=== PATIENT | male | born 1990 | race African-American/Black ===

== ENCOUNTER 2021-04-24 07:32 | Observation (INO) | payer MEDICAID, SELFPAY ==
[2021-04-24] VITALS (40 sets, daily range): BP systolic 138–188; BP diastolic 76–134; PULSE 57–97; RESP 15–27; TEMP 35.9–36.4; O2SAT 97–100; BMI 36.6
--- NOTE | ~2021-04-24 | CT_ITS ---
EXAMINATION: CTA chest PE protocol DATE: 04/24/2021 16:01 INDICATION: Chest pain and shortness of breath TECHNIQUE: Computed tomography (CT) pulmonary angiogram of the chest was performed with 100 mL Omnipa que-350 intravenous contrast. Additional 3D reconstructions utilizing coronal maximum intensity proje ction (MIP) were performed. Automated exposure control and iterative reconstruction technique were em ployed. The dose-length product was 1088.89 mGy-cm. COMPARISON: None FINDINGS: Excellent contrast opacification of the pulmonary arteries. There is mild streak artifact from dense contrast in the superior vena cava and right atrium. Mild scattered respiratory motion artifact. No p ulmonary embolism. No pneumonia, pulmonary edema, pleural effusion or pneumothorax. Heart size is nor mal. No pericardial effusion. Thoracic aorta is normal in caliber with no dissection. No pathological ly enlarged thoracic lymphadenopathy. Visualized upper abdomen and bones are unremarkable. IMPRESSION: 1. No pulmonary embolism or other acute cardiopulmonary disease. Reviewed, dictated and finalized at location A.
--- NOTE | ~2021-04-24 | XR_ITS ---
EXAMINATION: XR chest 2V DATE: 04/24/2021 07:55 INDICATION: Mid chest pain. TECHNIQUE: Frontal and lateral views of the chest were obtained. COMPARISON: None. FINDINGS: The chest demonstrates clear lungs without pneumonia, pleural effusion, or pneumothorax. Th e heart size is normal. IMPRESSION: 1. No acute cardiopulmonary disease. Reviewed, dictated and finalized at location A.
--- NOTE | 2021-04-24 07:40 | ECG_ITS ---
Measurements Intervals [place] Rate: 71 P: 14 IN: 148 QRS: -9 QRSD: 85 T: -69 QT: 360 QTc: 391 Interpretive Statements SINUS RHYTHM DELAYED PRECORDIAL R/S TRANSITION NONSPECIFIC T-WAVE ABNORMALITY- INF/LAT LEADS BASELINE ARTIFACT- I, II, III, AVR, AVL, AVF, V2-V6 BORDERLINE ECG Electronically Signed On 04-24-2021 8:06:07 CDT by Eyal Medley D.O.
[2021-04-24 07:53] LABS: Basophils Absolute Auto 0.1 K/mm3 (0.0-0.1); Basophils Percent Auto 0.9 % (0.2-1.2); Eosinophils Absolute Auto 0.6 K/mm3 (0-0.3); Eosinophils Percent Auto 7.7 % (0-4.4); Hematocrit 47.3 % (42.0-52.0); Hemoglobin 15.5 g/dL (14.0-18.0); Immature Granulocyte Absolute 0.02 K/mm3 (0.00-0.031); Immature Granulocyte Percent A 0.3 % (0-0.5); Lymphocytes Absolute Auto 2.81 K/mm3 (0.9-3.2); Lymphocytes Percent Auto 36.5 % (18.3-44.2); Mean Corpuscular HGB Conc 32.8 g/dl (32-36); Mean Corpuscular Hemoglobin 30.2 pg (26-34); Mean Corpuscular Volume 92.2 fl (80-100); Mean Platelet Volume 9.3 fl (7.4-10.4); Monocytes Absolute Auto 0.6 K/mm3 (0.1-0.6); Monocytes Percent Auto 7.5 % (2.6-8.5); Neutrophils Absolute Auto 3.6 K/mm3 (1.3-6.7); Neutrophils Percent Auto 47.1 % (45.5-73.1); Platelet Count Result 364 k/mm3 (150-375); Red Blood Count 5.13 M/mm3 (4.6-6.20); Red Cell Distribution Width 13.1 % (11.5-14.5); White Blood Count 7.7 K/mm3 (4.5-10.0)
[2021-04-24 08:08] LABS: INR 0.9; Prothrombin Time 11.8 Seconds (11.1-14.7)
[2021-04-24 08:09] LABS: Partial Thromboplastin Time 30.2 SECONDS (22.3-36.8)
--- NOTE | 2021-04-24 08:14 | ED.CHESTPAIN ---
HPI - Chest Pain General Chief Complaint: Chest Pain Stated Complaint: chest pain, SOB, left sided numbness Time Seen by Provider: 04/24/21 07:55 Source: patient History of Present Illness HPI narrative: Patient presents with chest pain. Patient reports his symptoms started around 615 and is getting in the car to go to work. His symptoms are described as a chest tightness were constant for approximately half hour and then resolved. When he got to work his boss was concerned these may be symptoms or heart attack referred in the ER for evaluation. Patient reports he feels well now. When he is having symptoms they were associated with some shortness of breath and again chest tightness. Reported brief wave of nausea at the end of his symptoms denies any active nausea or vomiting. Denies recent fevers, cough, congestion. Reports his father in his 40s from heart related issue. He denies recent hospitalizations, traumas, prior blood clots, recent surgeries. Related Data Home Medications Medication Instructions Recorded Confirmed No Home Medications 04/24/21 04/24/21 Allergies Allergy/AdvReac Type Severity Reaction Status Date / Time No Known Allergies Allergy Verified 04/24/21 07:39 Review of Systems Review of Systems: CONSTITUTIONAL: Denies fever, chills, or sweats. EYES: Denies visual changes, redness, or discharge. ENT: Denies rhinorrhea, congestion, sore throat, or otalgia. CARDIOVASCULAR: Denies palpitations, or edema. RESPIRATORY: Denies cough. GASTROINTESTINAL: Denies abdominal pain, nausea, vomiting, or diarrhea. GENITOURINARY: Denies dysuria or hematuria. SKIN: Denies rash or itching. MUSCULOSKELETAL: Denies back pain, joint pain, or myalgia. NEUROLOGIC: Denies headache, numbness, dizziness, or weakness. PSYCHIATRIC: Denies anxiety or depression. All systems reviewed & are unremarkable except as noted in HPI and below PMFSH Past Medical History Medical History (Updated 04/24/21 @ 13:55 by Frieda Bucio NP) Patient denies medical problems Tobacco abuse Surgical History Surgical History (Updated 04/24/21 @ 13:55 by Frieda Bucio NP) No pertinent past surgical history Family History Family History (Updated 04/24/21 @ 13:56 by Frieda Bucio NP) Father Hypertension CHF (congestive heart failure) Mother COVID-19 causing her to be Social History Social History (Updated 04/24/21 @ 13:58 by Frieda Bucio NP) Social History: the patient lives with his significant other and has 2 children. He works for a [employer]. He does not have a durable power energy attorney for healthcare and wishes to be a full code. He smokes a half pack a cigarettes a day. He denies any marijuana or illicit drugs. He does drink alcohol on the weekends. Code status full code Smoking packs per day: 0.5 Smoking cigarettes per day: 10.0 Years smoked: 11 Smoking pack-years: 5.50 Smoking status: Current every day smoker Tobacco type: cigarettes Alcohol intake: current Substance use: never Spiritual care concerns: No Exam Narrative: GENERAL: Well-appearing, well-nourished, and in no acute distress. HEAD: Normocephalic, atraumatic. EYES: PERRLA and EOMI. ENT: Nares clear, no rhinorrhea or epistaxis. Mucous membranes moist. NECK: Supple. No masses. No JVD CHEST: Clear to auscultation. No respiratory distress. No wheezes rales or rhonchi HEART: Regular rate and rhythm. No murmur heard. Normal peripheral pulses. ABDOMEN: Soft, nontender, nondistended, normal active bowel sounds. EXTREMITIES: Normal range of motion. No edema. SKIN: Warm, dry, no rash. NEURO: No focal deficits. Alert and oriented x3. PSYCH: Normal mood and affect. Course Reevaluation(s) Reevaluation #1: Patient notified of elevated troponin discussed with cardiology and hospitalist team patient is admitted for further management Date: 04/24/21 Time: 11:04 Vital Signs Vital s
[2021-04-24] MEDS: ASPIRIN 81 MG CHEWABLE TABLET 324 MG PO (09:33)
[2021-04-24 10:31] LABS: Alanine Aminotransferase 57 U/L (4-50); Alkaline Phosphatase 111 U/L (38-126); Aspartate Amino Transferase 41 U/L (17-59); Bilirubin,Total 0.6 mg/dL (0.2-1.3); Lipase 84 U/L (23-300)
[2021-04-24 10:48] LABS: Anion Gap 6 mmol/L (8-16); Blood Urea Nitrogen 11 mg/dL (9-20); Calcium 8.8 mg/dL (8.4-10.2); Carbon Dioxide 27 mmol/L (22-30); Chloride 108 mmol/L (98-107); Estimated CRCL calculation 132 ml/min; Estimated Glomerular Filt Rate > 60; Glucose 102 mg/dL (65-110); Potassium 5.2 mmol/L (3.4-5.0); Sodium 141 mmol/L (137-145); Troponin I 0.046 ng/mL (0.000-0.034)
--- NOTE | 2021-04-24 12:55 | ADMGEN ---
This patient, Abhijeet Wall, was admitted to IMU Room [id number]. Patient/family oriented to hospital policies and general routines including ID bracelet, bed and alarms, visiting hours, pain management, procedures, bathroom and other care routines, personal items, smoking policy, room service/diet, and visiting hours. Information on how to activate the Rapid Response Team has been discussed. Patient/Family are encouraged to report perceived risks to care and to ask questions if they do not understand what they are told or what they should do.
--- NOTE | 2021-04-24 13:48 | PM.IMHP ---
H&P: HPI History of Present Illness Date/Time: 04/24/21 13:48Thialeksandra is a 30-year-old male patient who has no prior medical history. 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 The patient stated that he got up and got ready for work this morning and started complaining of chest pain when he got into his brother's car to go to work around 615 this morning. He stated that he had midsternal chest pain that was non reproducible. He had some numbness and coolness to his left arm. He felt like his left arm was falling asleep. He did have any nausea until he was on his way to the hospital. The patient stated that he went to work with his brother and told his boss that he was having chest pain and his work sent him to the emergency room. His brother drove him to the emergency room and on his way to the emergency room the patient felt nauseated but did not vomit. He stated that his father in his 40s from heart related issues. He had no fever chills. The patient also stated that he felt short of breath and could not catch his breath. At this time the patient is pain-free. His blood pressure was quite elevated here his last blood pressure was 155/89. Chest x-ray was read as no acute cardiopulmonary disease. Potassium slightly elevated at 5.2. Initial troponin was slightly elevated 0.046. EKG read as sinus rhythm delayed precordial RS transition. Nonspecific T-wave abnormality in the inferior lateral leads. Cardiology has been consulted. The patient is being admitted to observation status on the date of service of 04/24/2021. Chief Complaint: Chest pain Review of Systems Review of Systems: All systems reviewed & are unremarkable except as noted in HPI and below Constitutional: Constitutional: Reports as per HPI and Reports no additional constitutional complaints Eyes: Eyes: Reports as per HPI and Reports no additional eye complaints ENT: Reports system reviewed and no additional complaints, except as documented and Reports Normal hearing present Cardiovascular: Cardiovascular: Reports no additional cardiovascular complaints Respiratory: Respiratory: Reports no additional respiratory complaints and Reports no additional respiratory complaints Gastrointestinal: Gastrointestinal: Reports as per HPI and Reports no additional gastrointestinal complaints Musculoskeletal: Musculoskeletal: Reports no additional musculoskeletal complaints Integumentary/Breasts: Skin/Breast: Reports system reviewed and no additional complaints, except as docu and Reports as per HPI Neurologic: Reports system reviewed and no additional complaints, except as documented, Reports as per HPI and Reports Normal hearing present Psychiatric: Psychiatric: Reports no additional psychiatric complaints and Reports as per HPI Endocrine: Endocrine: Reports no additional endocrine complaints Hematologic/Lymphatic: Hematologic/Lymphatic: Reports no additional hematologic/lymphatic complaints Allergic/Immunologic: Allergic/Immunologic: Reports no additional allergic/immunologic complaints PMF Past Medical History Medical History (Updated 04/24/21 @ 13:55 by Frieda Bucio NP) Patient denies medical problems Tobacco abuse Surgical History Surgical History (Updated 04/24/21 @ 13:55 by Frieda Bucio NP) No pertinent past surgical history Family History Family History (Updated 04/24/21 @ 13:56 by Frieda Bucio NP) Father Hypertension CHF (congestive heart failure) Mother COVID-19 causing her to be Social History Social History (Updated 04/24/21 @ 13:58 by Frieda Bucio NP) Social History: the patient lives with his significant other and has 2 children. He works for [employer]. He does not have a durable power academic coordinator for healthcare and wishes to be a full code. He smokes a half pack a cigarettes a day. He denies any fredrick
[2021-04-24 14:18] LABS: Troponin I < 0.012 ng/mL (0.000-0.034)
[2021-04-24 17:27] LABS: Amphetamine Screen Urine Negative (Negative); Barbiturate Screen Urine Negative (Negative); Benzodiazepines Screen Urine Negative (Negative); Cannabinoid Screen Urine Negative (Negative); Cocaine Screen Urine Negative (Negative); Methadone Screen Urine Negative (Negative); Opiate Screen Urine Negative (Negative); Phencyclidine Screen Urine Negative (Negative)
--- NOTE | 2021-04-24 20:01 | PM.CNCAR ---
Assessment and Plan Assessment and plan (1) Chest pain: Qualifiers: Chest pain type: unspecified Qualified Code(s): R07.9 - Chest pain, unspecified Code(s): R07.9 - Chest pain, unspecified Status: Acute Assessment and Plan: Atypical chest pain, with a normal EKG. First troponin was borderline elevated with a 2nd has been normal. My index of suspicion for ACS is very low. I think his chest pain was related to his severe hypertension. However, will evaluate further with a treadmill stress test since his father apparently had heart attacks when he was fairly young and the patient has other risk factors. (2) Elevated troponin: Code(s): R77.8 - Other specified abnormalities of plasma proteins Status: Acute Assessment and Plan: One borderline elevation of troponin, secondary to severe hypertension and nonischemic myocardial injury, doubt ACS. (3) Hypertension: Code(s): I10 - Essential (primary) hypertension Status: Acute Assessment and Plan: Uncontrolled hypertension. Both parents have hypertension the patient has had high blood pressure readings in the past. I think it is time to treat his hypertension. Likely he will need multidrug therapy but will start with amlodipine 5 mg daily. He has no primary care doctor needs to find 1. Reviewed nonpharmacologic treatment for hypertension with weight loss, reviewed heart healthy eating, and also reviewed pharmacologic treatment. (4) Tobacco abuse: Code(s): Z72.0 - Tobacco use Status: Chronic Assessment and Plan: Strongly recommended tobacco cessation. History of Present Illness History of Present Illness Consult date/time: 04/24/21 20:01 Consult reason: chest pain Reason For Visit: Elevated Troponin Narrative: Abhijeet Wall is a 30-year-old male whom I was asked to see at the request of the hospitalist for my advice and opinion regarding his chest pain in consultation. The patient has been in his normal state of health until this morning when driving to work he started having a sensation that he could not catch his breath, and had some mild right-sided dull chest discomfort. His left arm felt tingly. He was queasy. When he complained at work, he was sent to the emergency room. His initial blood pressure was 188/120 and for most the day it has been running in the 140-160 range. He has had intermittent high blood pressure readings in the past. 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 He smokes cigarettes, and his father in his 40s of heart disease. Otherwise the patient can work hard and carry heavy loads with no particular problems with chest pain or shortness of breath. The patient's chest x-ray was unremarkable as was an CTA of the chest, showing no PE or other acute cardiopulmonary disease. His 1st troponin was 0.046 but the 2nd was normal. EKG today on my personal review showed NSR rate 71, nonspecific ST changes. No ischemic changes. Review of Systems Constitutional: Constitutional: Reports no additional constitutional complaints and Denies weakness Eyes: Eyes: Reports no additional eye complaints ENT: Denies epistaxis Cardiovascular: Cardiovascular: Reports chest pain, Denies diaphoresis, Denies pedal edema, Denies lightheadedness and Denies palpitations Respiratory: Respiratory: Denies cough, Reports dyspnea and Denies dyspnea on exertion Gastrointestinal: Gastrointestinal: Denies abdominal pain and Denies hematochezia Genitourinary: Genitourinary: Denies hematuria Musculoskeletal: Musculoskeletal: Reports no additional musculoskeletal complaints Integumentary/Breasts: Skin/Breast: Denies rash Neurologic: Denies confusion Psychiatric: Psychiatric: Denies behavioral changes [facility] Past Medical History Medical History Patient denies medical pr
[2021-04-24 20:12] LABS: Troponin I < 0.012 ng/mL (0.000-0.034)
[2021-04-24] MEDS: amLODIPine BESYLATE 5 MG TABLET PO (21:29)
[2021-04-25] VITALS (9 sets, daily range): BP systolic 124–152; BP diastolic 79–89; PULSE 12–106; RESP 14–22; TEMP 35.7–36.6; O2SAT 100
--- NOTE | 2021-04-25 | ECHO_ITS ---
Patient Info Name: Abhijeet Wall Age: 30 years : 1990 Gender: Male Ht: 73 in Wt: 275 lbs BSA: 2.58 m2 HR: 71 bpm BP: 126 / 79 mmHg Heart Rhythm: Sinus Rhythm Exam Date: 04/25/2021 9:06 AM Exam Location: [facility] Pulmonary Patient Status: Inpatient Admit Date: 04/24/2021 Staff Ordering Physician: Frieda Bucio NP Material Stockkeeper Yard: Arden Orosco RDCS, RT Attending Provider: Kadeem Camp MD Referring Physician: Fortunato OCHEN; Exam Type: CA echo dop color flow w con Study Info Indications R07.9 - Chest pain, unspecified Complete two-dimensional, color flow and Doppler transthoracic echocardiogram is performed. Strain analysis performed. Summary 1. Complete two-dimensional, color flow and Doppler transthoracic echocardiogram is performed. 2. Essentially unremarkable 2D Doppler echocardiogram. Left Ventricle Left ventricular chamber dimension is normal. Left ventricular systolic function is normal, estimated at 50-55%. The left ventricular diastolic function is normal. Right Ventricle Right ventricular chamber dimension is normal. Left Atria Left atrial chamber dimension is normal. Right Atria Right atrial chamber dimension is normal. Aortic Valve The aortic valve is normal. Pulmonic Valve The pulmonic valve is not well visualized. Mitral Valve The mitral valve has normal leaflets. Tricuspid Valve The tricuspid valve leaflets are normal. Pericardium/Pleural The pericardium appears normal. Aorta The aortic root size at the sinus of Valsalva is normal. Left Ventricular Outflow Tract Name Value Normal LVOT 2D LVOT Diameter 2.03 cm LVOT Doppler LVOT Peak Gradient 3 mmHg LVOT Mean Gradient 2 mmHg LVOT VTI 19.79 cm LVOT VTI/AV VTI Ratio 0.75 LVOT Stroke Volume 64.05 ml LVOT CO 5.30 l/min LVOT CI 2.06 L/min/m2 Mitral Valve Name Value Normal MV Doppler MV Decel Ashley 328.23 cm/s2 MV PHT 0 s MV Area (PHT) 3.35 cm2 4.00-5.00 MV Diastolic Function MV E Peak Velocity 74.26 cm/s MV A Peak Velocity 59.26 cm/s MV E/A 1.25 MV Decel Time 0 s Tricuspid Valve Name Value Normal TV Diastolic Function
--- NOTE | 2021-04-25 | EST_ITS ---
Patient Info Name: Abhijeet Wall Age: 30 years : 1990 Gender: Male Ht: 72 in Wt: 275 lbs BSA: 2.56 m2 HR: 98 bpm BP: 143 / 102 mmHg Heart Rhythm: Sinus Rhythm Exam Date: 04/25/2021 10:26 AM Exam Location: [facility] Stress Patient Status: Inpatient Admit Date: 04/24/2021 Staff Ordering Physician: Alondra Alfonso MD Attending Provider: DR FERNANDEZ Exercise Technologist: Paola Mccoy CT Exercise Physician: Myron Fernandez MD Exam Type: CA stress test treadmill Study Info Indications R07.9 - Chest pain, unspecified An exercise stress test was performed. Summary 1. Normal sinus rhythm with nonspecific T-wave abnormality. 2. Occasional PVCs. 3. No abnormal ST/T wave changes with exercise. 4. Clinically and electrocardiographically negative exercise stress test to over 100% of age predicted maximum heart rate. 5. Reduced functional capacity. Protocol: Lexiscan Stress ECG Details Stage: REST Duration (min): 1 min : 6 sec HR (bpm): 79 SBP (mmHg): 143 DBP (mmHg): 77 Stage: REST Duration (min): 11 min : 30 sec HR (bpm): 121 SBP (mmHg): 143 DBP (mmHg): 77 Stage: STAGE 1 Duration (min): 0 min : 26 sec HR (bpm): 87 SBP (mmHg): 143 DBP (mmHg): 77 Stage: RECOVERY Duration (min): 0 min : 6 sec HR (bpm): 86 SBP (mmHg): 143 DBP (mmHg): 77 Rest HR: 121 bpm Peak HR: 93 bpm Rest Sys BP: 143 mmHg Max Pred HR: 190 bpm % Max Pred HR: 49 % Target HR: 162 bpm Max RPP: 10,725 bpm*mmHg Target HR Summary: Test terminated after reaching target heart rate (85% max predicted) BP Response: Normal blood pressure response Termination Reason: Reached target heart rate or workload Cardiac Symptoms: None Total Time: 0 min : 26 sec Rest Pettit BP: 77 mmHg Total Dose: 0.4 mg Resting ECG Normal sinus rhythm with nonspecific T-wave abnormality. Stress ECG No abnormal ST/T wave changes with exercise. Arrhythmias Occasional PVCs. Report Signatures
[2021-04-25 05:18] LABS: Alanine Aminotransferase 54 U/L (4-50); Albumin Level 3.9 g/dL (3.5-5.1); Alkaline Phosphatase 104 U/L (38-126); Anion Gap 5 mmol/L (8-16); Aspartate Amino Transferase 38 U/L (17-59); Bilirubin,Total 0.6 mg/dL (0.2-1.3); Blood Urea Nitrogen 10 mg/dL (9-20); Calcium 8.9 mg/dL (8.4-10.2); Carbon Dioxide 30 mmol/L (22-30); Chloride 106 mmol/L (98-107); Cholesterol 184 mg/dL (0-200); Estimated CRCL calculation 121 ml/min; Estimated Glomerular Filt Rate > 60; Glucose 99 mg/dL (65-110); HDL Direct 27 mg/dL; Lipase 85 U/L (23-300); Magnesium 2.1 mg/dL (1.6-2.3); Potassium 3.6 mmol/L (3.4-5.0); Sodium 141 mmol/L (137-145); Triglycerides 140 mg/dL (<150)
[2021-04-25 05:29] LABS: LDL Cholesterol Direct 139 mg/dL
[2021-04-25] MEDS: PERFLUTREN LIPID MICROSPHERES 1.5 ML VIAL DILUTED TO 10 ML TOTAL VOLUME IV PUSH (09:41)
--- NOTE | 2021-04-25 12:48 | PM.PNCARD ---
Progress Note: A&P Additional Plan 30-year-old man with: Elevated troponin level almost certainly related to hypertension. There is no clinical evidence of for suspicion of ischemic heart disease. Exercise stress test done this morning under my personal supervision was unremarkable at 100% of age predicted maximum heart rate. In my opinion he is stable for discharge with amlodipine. He does obviously need a PCP for follow-up of his hypertension. As there is no additional cardiac problem we do not anticipate following him in our office. Myron Fernandez MD [facility] Subjective Date/time seen: Date of service: 04/25/21 12:48 Interval history: 30-year-old black male with: Significant hypertension and elevated troponin level. Patient seen in the treadmill lab as he was scheduled for an exercise stress test by my partner who saw him yesterday. He is asymptomatic and does not offer any ischemic symptomatology at all. Blood pressure control is reasonable with amlodipine Exam Const: General: comfortable and no acute distress Other: Obese young man comfortable no distress HENMT: Mouth: Yes moist mucous membranes Eyes: Sclera: sclerae normal Pupils: Equal, round and reactive pupils present Neck: Neck: supple and no JVD Resp: Effort & Inspection: normal respiratory effort Auscultation: clear to auscultation bilaterally Cardio: Other: PMI is not palpable otherwise the skull to [place] exam is unremarkable GI: GI Palp: Yes Soft to palpation Auscultation: normal bowel sounds Neuro: Cognition (Neuro): normal cognition Extrem: General: normal to inspection Objective Data Vital Signs Vital Signs: Vital Signs - 24 hr 04/24/21 12:58 04/24/21 14:00 04/24/21 14:31 Temperature 35.9 C L Pulse Rate 63 71 Respiratory Rate 22 H Blood Pressure 155/89 H Pulse Oximetry 97 100 04/24/21 16:00 04/24/21 16:42 04/24/21 18:00 Temperature 36.1 C L Pulse Rate 97 64 70 Respiratory Rate 22 H Blood Pressure 154/100 H Pulse Oximetry 100 04/24/21 19:47 04/24/21 20:00 04/24/21 22:00 Temperature 36.4 C Pulse Rate 63 62 60 Respiratory Rate 15 Blood Pressure 138/76 Pulse Oximetry 100 04/25/21 00:00 04/25/21 02:00 04/25/21 03:52 Temperature 36.6 C 36.5 C Pulse Rate 68 67 12 L Respiratory Rate 16 14 Blood Pressure 124/83 126/79 Pulse Oximetry 100 100 04/25/21 04:00 04/25/21 06:00 04/25/21 08:00 Temperature Pulse Rate 106 H 64 64 Respiratory Rate Blood Pressure Pulse Oximetry 04/25/21 08:47 04/25/21 10:00 04/25/21 12:42 Temperature 36.1 C L 35.7 C L Pulse Rate 64 74 67 Respiratory Rate 22 H 22 H Blood Pressure 134/88 152/89 H Pulse Oximetry 100 100 Intake/Output Intake/Output: Intake & Output 04/22/21 04/23/21 04/24/21 04/25/21 23:59 23:59 23:59 23:59 Intake Total 440 440 Output Total 350 Balance 90 440 Meds/Results Medications: Active Medications Generic Name Dose Route Start Last Admin Trade Name Freq PRN Reason Stop Dose Admin Amlodipine Besylate 5 mg 04/24/21 20:30 04/24/21 21:29 Amlodipine Besylate 5 Mg Tablet PO 5 mg QAM [facility] Administration Aspirin 81 mg 04/25/21 08:00 Aspirin 81 Mg Chewable Tablet PO DAILY@0800 [facility] Enoxaparin Sodium 40 mg 04/24/21 18:00 04/24/21 17:29 Enoxaparin 40 Mg/0.4 Ml Syringe SUB-Q Not Given DAILY@1800 [facility] Hydralazine HCl 10 mg 04/24/21 13:45 Hydralazine Hcl 20 Mg/Ml Vial IV PUSH Q8H PRN Blood Pressure - High Radiology Results: ITS Impressions Chest X-Ray 04/24/21 07:58 IMPRESSION: 1. No acute cardiopulmonary disease. Chest CTA 04/24/21 16:28 IMPRESSION: 1. No pulmonary embolism or other acute cardiopulmonary disease. Labs Labs: Laboratory Results - last 24 hr 04/24/21 04/24/21 04/24/21 13:50 15:51 19:41 Sodium Potassium Chloride Carbon Dioxide Anion Gap BUN Creatinine Estim Creat Clear Calc
--- NOTE | 2021-04-25 13:06 | PM.DS ---
DS: Admitting Diagnosis Discharge Date 04/25/21 Admitting Diagnosis Chest pain and rule out of acute coronary syndrome Hypertension Smoker DS: Discharge Diagnosis Discharge Diagnosis (1) Elevated troponin: Code(s): R77.8 - Other specified abnormalities of plasma proteins Status: Acute Assessment and Plan: His 1st set of troponin came back as 0.046. It trended down 2.0 1 2 during subsequent check. The patient no longer has any chest pain. He has a strong family history of myocardial infarction. He stated that his father had heart disease and in his 40s from heart disease. He received aspirin in the emergency department. He was evaluated by Cardiology would think that it is atypical chest pain. EKG was normal. Cardiology service recommended a stress test. A stress test was performed. He was able to achieve 100% of his age predicted maximum heart rate. Official report of the stress test is pending but as per cardiology service note, it seems normal and he is clear for discharge from cardiology perspective. Echocardiogram is performed as well pending read from cardiology service. He was noticed to be elevated blood pressure. He has mentioned that he had elevated blood pressure in the past too. He was started on amlodipine 5 mg once a day with good response to his blood pressure. He needs to have follow-up with primary care physician. Care coordination team was informed and he will be given educational material to get himself assigned to a primary care physician. He needs to see a primary care physician in a week time so that his blood pressure can be rechecked and adjust the doses of the medication he is being discharged on. He had a CT of the chest at the time of presentation as well which was negative for PE. It also did not show any evidence of acute pulmonary pathology. (2) Chest pain: Qualifiers: Chest pain type: unspecified Qualified Code(s): R07.9 - Chest pain, unspecified Code(s): R07.9 - Chest pain, unspecified Status: Acute Assessment and Plan: His chest pain has subsided at this time. He was given aspirin in the emergency room. The patient stated that this happened all of a sudden any became very short of breath and felt that he could not catch his breath. As above (3) Elevated blood pressure reading: Code(s): R03.0 - Elevated blood-pressure reading, without diagnosis of hypertension Status: Acute Assessment and Plan: The patient stated that he had an elevated blood pressure in the past and had it rechecked and was normal. His blood pressure was elevated at the time of presentation which was consistent. He was started on amlodipine 5 mg daily. His blood pressure seems to be within acceptable range does still with few readings a bit on the high side. He will follow-up with his primary care physician in a week time for rechecking his blood pressure and adjustment of his medication dosage if indicated. (4) Tobacco abuse: Code(s): Z72.0 - Tobacco use Status: Chronic Assessment and Plan: We did discuss smoking cessation. DS: Summary Hospital Course Hospital Course: As above Time Spent with Patient Time attestation: Total time spent providing and/or coordinating discharge services: > 35 minutes Exam Narrative: General awake and alert not in acute distress CVS S1-S2 no murmur Respiratory no wheezes or crepitation respiration nonlabored GI soft nontender nondistended no hepatosplenomegaly HEAD OF VISUAL MERCHANDISING alert oriented x3 and grossly nonfocal neurological exam Psychiatric cooperative appropriate mood and affect Extremities no edema DS: Data Data Completed and Pending Labs on day of discharge: Labs from last 24 hours 04/25/21 04/25/21 04/24/21 04:49 04:49 19:41 Sodium 141 Potassium 3.6 Chloride 106 Carbon Dioxide 30 Anion Gap 5 L BUN 10 Creatinine 1.10 Estim Creat
== END 2021-04-25 14:25 | disposition home or self-care (01) ==
LOC: ANHED 11:24 → ANHIMU 13:50
PROVIDERS: Nurse Practitioner; Admitting Provider Internal Medicine; Emergency Provider Emergency Medicine; Visit Provider Internal Medicine Critical Care Medicine
DX: R77.8 Other specified abnormalities of plasma proteins (principal); R07.9 Chest pain, unspecified; F17.210 Nicotine dependence, cigarettes, uncomplicated; I10 Essential (primary) hypertension; Z82.49 Family history of ischemic heart disease and other diseases of the circulatory system
CPT/HCPCS: 36415; 71046; 71275; 80048; 80053; 80061; 80076; 80307; 83690; 83735; 84443; 84484; 85025; 85610; 85730; 93005; 93017; 99285; A9270; C8929; G0378; Q9957; Q9967

== ENCOUNTER 2021-10-07 07:29 | Emergency (ER) | payer OTHER, SELFPAY ==
[2021-10-07] VITALS (19 sets, daily range): BP systolic 127–154; BP diastolic 74–116; PULSE 57–75; RESP 14–20; TEMP 36.8; O2SAT 98–100
--- NOTE | 2021-10-07 07:47 | ECG_ITS ---
Measurements Intervals [place] Rate: 68 P: 29 CT: 136 QRS: -3 QRSD: 93 T: -25 QT: 375 QTc: 399 Interpretive Statements SINUS RHYTHM WITH SINUS ARRHYTHMIA POSSIBLE ANTERIOR MYOCARDIAL INFARCTION , OF INDETERMINATE AGE Electronically Signed On 10-07-2021 8:49:08 CDT by Max Wilson M.D.
--- NOTE | 2021-10-07 07:48 | ED.CHESTPAIN ---
HPI - Chest Pain General Chief Complaint: Chest Pain Stated Complaint: CP Time Seen by Provider: 10/07/21 07:34 Source: patient Mode of arrival: ambulatory Limitations: no limitations History of Present Illness HPI narrative: 30-year-old male presents emergency room states he was driving to work today when he had onset of some nonspecific left-sided chest pain that lasted for a few minutes and resolved. She had no cardiac history other than hypertension. Is currently taking lisinopril and they have upped his dose from 5 mg to 10 mg a day but he states his blood pressure still not adequately controlled. Denies any history of ongoing chest pain. Never has any exertional chest pain or dyspnea. He is completely asymptomatic at this time. Denies any shortness of breath. The pain which is located to the left upper chest just below his clavicle. He had no radiation of the pain. Related Data Allergies Allergy/AdvReac Type Severity Reaction Status Date / Time No Known Allergies Allergy Verified 04/24/21 07:39 Review of Systems Review of Systems: CONSTITUTIONAL: Denies fever, chills, or sweats. EYES: Denies visual changes, redness, or discharge. ENT: Denies rhinorrhea, congestion, sore throat, or otalgia. CARDIOVASCULAR: Denies palpitations, or edema. Had some left-sided chest pain as noted in HPI RESPIRATORY: Denies cough or dyspnea. GASTROINTESTINAL: Denies abdominal pain, nausea, vomiting, or diarrhea. GENITOURINARY: Denies dysuria or hematuria. SKIN: Denies rash or itching. MUSCULOSKELETAL: Denies back pain, joint pain, or myalgia. NEUROLOGIC: Denies headache, numbness, or weakness. PSYCHIATRIC: Denies anxiety or depression. [facility] Past Medical History Medical History Hypertension Patient denies medical problems Tobacco abuse Surgical History Surgical History No pertinent past surgical history Family History Family History Father Hypertension CHF (congestive heart failure) Had heart attacks and CHF, in his 40s. Mother COVID-19 causing her to be Hypertension Social History Social History Social History: the patient lives with his significant other and has 2 children. He works for a [employer]. He does not have a durable power patent prosecution attorney for healthcare and wishes to be a full code. He smokes a half pack a cigarettes a day. He denies any marijuana or illicit drugs. He does drink alcohol on the weekends. Code status full code Smoking packs per day: 0.5 Smoking cigarettes per day: 10.0 Years smoked: 11 Smoking pack-years: 5.50 Smoking status: Current every day smoker Tobacco type: cigarettes Alcohol intake: current Substance use: never Spiritual care concerns: No Exam Narrative: APPEARANCE: Well appearing, no pain or distress, well-nourished. Head normocephalic and atraumatic. EYES: PERRLA/EOMI, conjunctivae very clear. NOSE: Normal with no drainage EARS:TMS clear Kimberlee Garcia, with good light reflex. THROAT: Pharynx clear, no exudate. NECK: Supple. No adenopathy, no masses. RESPIRATORY: Airway patent, respirations nonlabored. Clear to auscultation bilaterally, no rales, rhonchi, wheezing. CARDIOVASCULAR: Regular rate and rhythm without murmurs, rubs, or gallops. ABDOMINAL: Soft, nontender, nondistended, no hepatosplenomegaly Musculoskeletal: Moves all extremities. Strength/ROM intact, No edema, No calf tenderness. NEURO: Alert. Cranial nerves II through XII intact. Normal gait. Good coordination. Nonfocal examination. SKIN:: Warm, dry. Normal Color PSYCHIATRIC: Normal affect/mood, normal interaction Course Vital Signs Vital signs: Vital Signs Temperature 98.3 F 10/07/21 07:35 Pulse Rate 69 10/07/21 07:35 Respir
[2021-10-07] MEDS: cloNIDine HCL 0.1 MG TABLET PO (07:59)
[2021-10-07 08:34] LABS: Troponin I 0.019 ng/mL (0.000-0.034)
== END 2021-10-07 09:41 | disposition home or self-care (01) ==
PROVIDERS: Emergency Provider Emergency Medicine
DX: R07.89 Other chest pain (principal); I10 Essential (primary) hypertension; F17.210 Nicotine dependence, cigarettes, uncomplicated; Z79.899 Other long term (current) drug therapy
CPT/HCPCS: 36415; 84484; 93005; 99284; A9270

== ENCOUNTER 2021-12-30 17:59 | Emergency (ER) | payer OTHER, SELFPAY ==
--- NOTE | 2021-12-30 18:28 | PC.NURSE ---
1st call for triage. no answer.
--- NOTE | 2021-12-30 19:16 | PC.NURSE ---
per LUCIANO barnhart pt called at [phone] with no response, pt called again at 1910 no response.
== END 2021-12-30 18:26 | disposition left against medical advice (07) ==
PROVIDERS: PCP Internal Medicine Gastroenterology
DX: Z53.21 Procedure and treatment not carried out due to patient leaving prior to being seen by health care provider (principal)
CPT/HCPCS: 99199

== ENCOUNTER 2022-02-12 23:48 | Emergency (ER) | payer OTHER, MEDICAID, SELFPAY ==
--- NOTE | ~2022-02-12 | XR_ITS ---
EXAMINATION: XR chest 2V DATE: 02/13/2022 00:11 INDICATION: Left chest pain. TECHNIQUE: Frontal and lateral views of the chest were obtained. COMPARISON: Chest 2 views 04/24/2021, chest CT 04/24/2021 FINDINGS: The chest demonstrates clear lungs without pneumonia, pleural effusion, or pneumothorax. Th e heart size is normal. IMPRESSION: 1. No acute cardiopulmonary disease. Reviewed, dictated and finalized at location A.
--- NOTE | 2022-02-12 23:50 | ECG_ITS ---
Measurements Intervals [place] Rate: 65 P: 31 [place]: 157 QRS: -1 QRSD: 90 T: -7 QT: 382 QTc: 399 Interpretive Statements SINUS RHYTHM WITHIN NORMAL LIMITS COMPARED TO ECG 10/07/2021 07:39:34 NO SIGNIFICANT CHANGES Electronically Signed On 02-13-2022 10:23:28 CDT by Myron Fernandez M.D.
[2022-02-12 23:52] VITALS: BP 129/81; PULSE 64; RESP 16; TEMP 36.9; O2SAT 100
[2022-02-13 00:06] LABS: Basophils Absolute Auto 0.1 K/mm3 (0.0-0.1); Basophils Percent Auto 0.7 % (0.2-1.2); Eosinophils Absolute Auto 0.2 K/mm3 (0-0.3); Eosinophils Percent Auto 2.3 % (0-4.4); Hematocrit 45.9 % (42.0-52.0); Hemoglobin 15.1 g/dL (14.0-18.0); Immature Granulocyte Absolute 0.02 K/mm3 (0.00-0.031); Immature Granulocyte Percent A 0.2 % (0-0.5); Lymphocytes Absolute Auto 3.47 K/mm3 (0.9-3.2); Lymphocytes Percent Auto 39.5 % (18.3-44.2); Mean Corpuscular HGB Conc 32.9 g/dl (32-36); Mean Corpuscular Hemoglobin 28.8 pg (26-34); Mean Corpuscular Volume 87.4 fl (80-100); Mean Platelet Volume 9.2 fl (7.4-10.4); Monocytes Absolute Auto 0.9 K/mm3 (0.1-0.6); Neutrophils Absolute Auto 4.2 K/mm3 (1.3-6.7); Neutrophils Percent Auto 47.3 % (45.5-73.1); Platelet Count Result 412 k/mm3 (150-375); Red Blood Count 5.25 M/mm3 (4.6-6.20); Red Cell Distribution Width 12.6 % (11.5-14.5); White Blood Count 8.8 K/mm3 (4.5-10.0)
[2022-02-13 00:16] LABS: Prothrombin Time 12.6 Seconds (11.1-14.7)
[2022-02-13 00:17] LABS: Partial Thromboplastin Time 27.5 SECONDS (22.3-36.8)
[2022-02-13 00:18] LABS: Alanine Aminotransferase 63 U/L (6-50); Albumin Level 4.7 g/dL (3.5-5.1); Alkaline Phosphatase 135 U/L (38-126); Anion Gap 9 mmol/L (8-16); Aspartate Amino Transferase 43 U/L (17-59); Bilirubin,Total 0.3 mg/dL (0.2-1.3); Blood Urea Nitrogen 14 mg/dL (9-20); Calcium 8.8 mg/dL (8.4-10.2); Carbon Dioxide 33 mmol/L (22-30); Chloride 98 mmol/L (98-107); Estimated CRCL calculation 106 ml/min; Estimated Glomerular Filt Rate > 60; Glucose 101 mg/dL (65-110); Lipase 138 U/L (23-300); Potassium 3.2 mmol/L (3.4-5.0); Sodium 140 mmol/L (137-145)
--- NOTE | 2022-02-13 00:18 | ED.CHESTPAIN ---
HPI - Chest Pain General Chief Complaint: Chest Pain Stated Complaint: chest pain Time Seen by Provider: 02/13/22 00:10 History of Present Illness HPI narrative: 31-year-old male presents emergency room secondary some atypical left-sided chest pain. Patient describes it as a sharp pain that will last for couple seconds. He had several episodes this evening so he got concerned. Got underlying history also some anxiety. He has been to several emergency departments for this type chest pain Also saw him back in September for the same type pain at that time was also noted that his blood pressure was not adequately controlled. We want some additional medication and blood pressures been controlled. He was recently seen by biometrics instructor who evaluated him as well. Made some adjustments to his blood pressure treatment. He is scheduled to have a follow-up with a biometrics instructor sound like they may do some additional blood work and may be even a CT coronary angiogram. However at this time the patient is not having anything that would be consistent with acute ischemic cardiac issues. Related Data Allergies Allergy/AdvReac Type Severity Reaction Status Date / Time No Known Allergies Allergy Verified 02/13/22 00:00 Review of Systems Review of Systems: CONSTITUTIONAL: Denies fever, chills, or sweats. EYES: Denies visual changes, redness, or discharge. ENT: Denies rhinorrhea, congestion, sore throat, or otalgia. CARDIOVASCULAR: Denies any palpitations. Has some intermittent sharp left-sided chest pain that last for few seconds RESPIRATORY: Denies cough or dyspnea. GASTROINTESTINAL: Denies abdominal pain, nausea, vomiting, or diarrhea. GENITOURINARY: Denies dysuria or hematuria. SKIN: Denies rash or itching. MUSCULOSKELETAL: Denies back pain, joint pain, or myalgia. NEUROLOGIC: Denies headache, numbness, or weakness. PSYCHIATRIC: Denies anxiety or depression. [facility] Past Medical History Medical History Hypertension Patient denies medical problems Tobacco abuse Surgical History Surgical History No pertinent past surgical history Family History Family History Father Hypertension CHF (congestive heart failure) Had heart attacks and CHF, in his 40s. Mother COVID-19 causing her to be Hypertension Social History Social History Social History: the patient lives with his significant other and has 2 children. He works for a [employer]. He does not have a durable power patent attorney for healthcare and wishes to be a full code. He smokes a half pack a cigarettes a day. He denies any marijuana or illicit drugs. He does drink alcohol on the weekends. Code status full code Smoking packs per day: 0.5 Smoking cigarettes per day: 10.0 Years smoked: 11 Smoking pack-years: 5.50 Smoking status: Current every day smoker Tobacco type: cigarettes Alcohol intake: current Substance use: never Spiritual care concerns: No Exam Narrative: APPEARANCE: Well appearing, no pain or distress, well-nourished. Head Normocephalic and atraumatic. EYES: PERRLA/EOMI, conjunctivae clear. NOSE: Normal with no drainage EARS:TMS clear with Garcia, with good light reflex. THROAT: Pharynx clear, no exudate. NECK: Supple. No adenopathy, no masses. RESPIRATORY: Airway patent, respirations nonlabored. Clear to auscultation bilaterally, no rales, rhonchi, wheezing. CARDIOVASCULAR: Regular rate and rhythm without murmurs, rubs, or gallops. ABDOMINAL: Soft, nontender, nondistended, no hepatosplenomegaly Musculoskeletal: Moves all extremities. Strength/ROM intact, No edema, No calf tenderness. NEURO: Alert. Cranial nerves II through XII intact. Normal gait. Good coordination. Nonfocal examination.
[2022-02-13 00:28] VITALS: PULSE 63
[2022-02-13] MEDS: POTASSIUM CHLORIDE 20 MEQ PACKET (FOR LIQUID) 40 MEQ PO (00:33)
[2022-02-13 00:59] VITALS: BP 118/84; PULSE 59; RESP 21; O2SAT 99
== END 2022-02-13 01:00 | disposition home or self-care (01) ==
PROVIDERS: Emergency Provider Emergency Medicine; PCP Internal Medicine Gastroenterology
DX: R07.89 Other chest pain (principal); E87.6 Hypokalemia; I10 Essential (primary) hypertension; F17.210 Nicotine dependence, cigarettes, uncomplicated
CPT/HCPCS: 36415; 71046; 80053; 83690; 84484; 85025; 85610; 85730; 93005; 99284; A9270

== ENCOUNTER 2022-02-28 13:58 | Emergency (ER) | payer OTHER, MEDICAID, SELFPAY ==
--- NOTE | ~2022-02-28 | XR_ITS ---
EXAMINATION: XR chest 2V DATE: 02/28/2022 14:19 INDICATION: Chest pain TECHNIQUE: PA and lateral views of the chest are obtained. COMPARISON: 02/13/2022 FINDINGS: The lungs are free of acute opacities. No pleural effusion or pneumothorax. The cardiomedia stinal silhouette is normal. The visualized bones and soft tissues are unremarkable. IMPRESSION: 1. No acute cardiopulmonary abnormality. Reviewed, dictated and finalized at location A.
--- NOTE | 2022-02-28 14:01 | ECG_ITS ---
Measurements Intervals [place] Rate: 54 P: 17 [place]: 160 QRS: -2 QRSD: 91 T: -8 QT: 415 QTc: 397 Interpretive Statements SINUS BRADYCARDIA NONSPECIFIC T-WAVE ABNORMALITY ABNORMAL ECG COMPARED TO ECG 02/12/2022 23:58:18 SINUS BRADYCARDIA NOW PRESENT T-WAVE ABNORMALITY NOW PRESENT Electronically Signed On 02-28-2022 17:24:30 CDT by Oscar Conteh M.D.
[2022-02-28 14:25] LABS: Basophils Absolute Auto 0.1 K/mm3 (0.0-0.1); Basophils Percent Auto 0.8 % (0.2-1.2); Eosinophils Absolute Auto 0.1 K/mm3 (0-0.3); Eosinophils Percent Auto 1.3 % (0-4.4); Hematocrit 45.7 % (42.0-52.0); Hemoglobin 15.1 g/dL (14.0-18.0); Immature Granulocyte Absolute 0.02 K/mm3 (0.00-0.031); Immature Granulocyte Percent A 0.3 % (0-0.5); Lymphocytes Absolute Auto 2.06 K/mm3 (0.9-3.2); Lymphocytes Percent Auto 33.8 % (18.3-44.2); Mean Corpuscular Hemoglobin 28.7 pg (26-34); Mean Corpuscular Volume 86.9 fl (80-100); Monocytes Absolute Auto 0.7 K/mm3 (0.1-0.6); Monocytes Percent Auto 10.8 % (2.6-8.5); Neutrophils Absolute Auto 3.2 K/mm3 (1.3-6.7); Platelet Count Result 364 k/mm3 (150-375); Red Blood Count 5.26 M/mm3 (4.6-6.20); Red Cell Distribution Width 12.8 % (11.5-14.5); White Blood Count 6.1 K/mm3 (4.5-10.0)
[2022-02-28 14:27] VITALS: BP 135/76; PULSE 56; RESP 16; TEMP 36.2; O2SAT 99
[2022-02-28 14:34] LABS: Prothrombin Time 12.6 Seconds (11.1-14.7)
[2022-02-28 14:35] LABS: Alanine Aminotransferase 44 U/L (6-50); Albumin Level 4.6 g/dL (3.5-5.1); Alkaline Phosphatase 119 U/L (38-126); Anion Gap 10 mmol/L (8-16); Aspartate Amino Transferase 35 U/L (17-59); Bilirubin,Total 0.4 mg/dL (0.2-1.3); Blood Urea Nitrogen 16 mg/dL (9-20); Calcium 9.5 mg/dL (8.4-10.2); Carbon Dioxide 29 mmol/L (22-30); Chloride 98 mmol/L (98-107); Estimated CRCL calculation 107 ml/min; Estimated Glomerular Filt Rate > 60; Glucose 105 mg/dL (65-110); Lipase 102 U/L (23-300); Partial Thromboplastin Time 28.1 SECONDS (22.3-36.8); Sodium 137 mmol/L (137-145)
[2022-02-28 14:47] LABS: Troponin I < 0.012 ng/mL (0.000-0.034)
--- NOTE | 2022-02-28 17:17 | ED.GENADULT ---
HPI - General Adult General Chief complaint: Chest Pain Stated complaint: chest pain Time Seen by Provider: 02/28/22 16:57 History of Present Illness HPI narrative: 31-year-old male history of hypertension presenting to the emergency department for evaluation of chest pain. Patient states that approximately 1230 he was having left-sided chest pain. Pain occurred while patient was resting and sitting on the couch. Patient states that the sharp chest pain lasted approximately 1 minute and for about an hour and a half afterwards he had subsequent pain that felt like heartburn. Patient states he does not frequently have heartburn. Upon arrival emergency room patient states that all of his symptoms has resolved and he has no complaints at this time. Patient does have history of hypertension and does take atenolol. Patient did have a stress test in April 2021 that was negative. Patient has no prior history of [place]. Patient denied any recreational drug use and the denied any cocaine use specifically. Related Data Allergies Allergy/AdvReac Type Severity Reaction Status Date / Time No Known Allergies Allergy Verified 02/13/22 00:00 Review of Systems Review of Systems: CONSTITUTIONAL: Denies fever, chills, or sweats. EYES: Denies visual changes, redness, or discharge. ENT: Denies rhinorrhea, congestion, sore throat, or otalgia. CARDIOVASCULAR: See HPI RESPIRATORY: Denies cough or dyspnea. GASTROINTESTINAL: Denies abdominal pain, nausea, vomiting, or diarrhea. GENITOURINARY: Denies dysuria or hematuria. SKIN: Denies rash or itching. MUSCULOSKELETAL: Denies back pain, joint pain, or myalgia. NEUROLOGIC: Denies headache, numbness, or weakness. [facility] Past Medical History Medical History Hypertension Patient denies medical problems Tobacco abuse Surgical History Surgical History No pertinent past surgical history Family History Family History Father Hypertension CHF (congestive heart failure) Had heart attacks and CHF, in his 40s. Mother COVID-19 causing her to be Hypertension Social History Social History Social History: the patient lives with his significant other and has 2 children. He works for a [employer]. He does not have a durable power insurance attorney for healthcare and wishes to be a full code. He smokes a half pack a cigarettes a day. He denies any marijuana or illicit drugs. He does drink alcohol on the weekends. Code status full code Smoking packs per day: 0.5 Smoking cigarettes per day: 10.0 Years smoked: 11 Smoking pack-years: 5.50 Smoking status: Current every day smoker Tobacco type: cigarettes Alcohol intake: current Substance use: never Spiritual care concerns: No Exam Narrative: APPEARANCE: Well appearing, no pain, no distress, well-nourished. HEAD: normocephalic, atraumatic. EYES: PERRLA/EOMI, conjunctivae clear. NOSE: Normal no drainage THROAT: Pharynx clear, no exudate. NECK: Supple. No adenopathy, no masses. RESPIRATORY: Airway patent, respirations nonlabored. Clear to auscultation bilaterally, no rales, rhonchi, wheezing. CARDIOVASCULAR: Regular rate and rhythm without murmurs rubs or gallops. ABDOMINAL: Soft, nontender, nondistended, normal bowel sounds MUSCULOSKELETAL: Moves all extremities. Strength/ROM intact, No edema, No calf tenderness. NEURO: Alert. Cranial nerves II through XII intact. Grossly intact SKIN: Warm, dry. Normal Color Course Vital Signs Vital signs: Vital Signs Temperature 97.2 F L 02/28/22 14:27 Pulse Rate 56 L 02/28/22 14:27 Respiratory Rate 16 02/28/22 14:27 Blood Pressure 135/76 02/28/22 14:27 Pulse Oximetry 99 02/28/22 14:27 Oxygen Delivery Room Air 02/28
[2022-02-28 17:45] LABS: Troponin I < 0.012 ng/mL (0.000-0.034)
[2022-02-28] MEDS: POTASSIUM CHLORIDE 20 MEQ PACKET (FOR LIQUID) 80 MEQ PO (17:56)
== END 2022-02-28 18:07 | disposition home or self-care (01) ==
PROVIDERS: Emergency Medicine; Emergency Provider Emergency Medicine; PCP Internal Medicine Gastroenterology
DX: R07.89 Other chest pain (principal); I10 Essential (primary) hypertension; F17.210 Nicotine dependence, cigarettes, uncomplicated
CPT/HCPCS: 36415; 71046; 80053; 83690; 84484; 85025; 85610; 85730; 93005; 99284; A9270